=== PATIENT | male | born 1950 | race Asian ===

== ENCOUNTER 2017-07-09 06:59 | Day surgery (SDC) | payer OTHER ==
--- NOTE | 2017-07-08 18:30 | PREOPHP ---
DATE OF ADMISSION: 07/09/2017 HISTORY OF PRESENT ILLNESS: This 67-year-old patient is admitted for elective cataract surgery of the left eye. The patient has had blurring of vision in the left eye for a number of years and vision has recently decrease in the right eye as well. The patient has had diabetes mellitus since 1945. The patient also has a history of benign prostatic hypertrophy and hypertension. CURRENT MEDICATIONS: Includes hydralazine, Coreg, amlodipine, glipizide, and tamsulosin, (discontinued 1 week prior to surgery). ALLERGIES: ALLERGIC TO PENICILLIN. PHYSICAL EXAMINATION: HEENT: Visual acuity with best correction is 2100 in the right eye and hand motion to vision in the left eye. Slit lamp examination reveals nuclear sclerotic and posterior subcapsular cataract changes in both eyes, with the left eye being much more advanced. Applanation tonometry is 18 mmHg in both eyes. Examination of the retina is obscured by the cataracts in both eyes. DIAGNOSIS: Advanced near mature cataract, left eye. PLAN: Cataract extraction with lens implant, left eye. The risks and alternatives to the surgery have been discussed with the patient as well as inability to prognosticate visual outcome due to inability to visualize the retina in the left eye. The patient understands this and agrees to proceed with surgery in hopes of improving visual acuity leading to greater ability to perform activities of daily living. Dictated By: Walt Mills MD /[email or web address]/deepthi /Document#: [id number]
[~2017-07-09] VITALS: Ht 165.1 cm; Wt 62.0 kg
[2017-07-09] MEDS ORDERED: DICLOFENAC 0.1% 2.5 ML OPH OPER SCH (07:30)
[2017-07-09] MEDS ORDERED: CIPROFLOXACIN 0.3% 2.5 ML OPH OPER SCH (07:30)
[2017-07-09] MEDS ORDERED: CYCLOPENTOLATE/PHENYLEPH 2 ML OPH OPER SCH (07:30)
[2017-07-09] MEDS ORDERED: TROPICAMIDE 1% 3ML OPH OPER SCH (07:30)
[2017-07-09] MEDS ORDERED: CARV25TA97 PO (07:45)
[2017-07-09] MEDS ORDERED: GLIP-95 PO (07:46)
[2017-07-09] MEDS ORDERED: HYDR-3671 PO (07:46)
[2017-07-09] MEDS ORDERED: TAMS0.4C2 PO (07:47)
[2017-07-09] MEDS ORDERED: AMLO2.5T78 PO (07:47)
[2017-07-09] MEDS ORDERED: ASPI-664 PO (07:48)
[2017-07-09] MEDS ORDERED: PRAV10TA43 PO (07:48)
[2017-07-09] MEDS ORDERED: GLU5XL PO (07:50)
[2017-07-09] MEDS ORDERED: hydrALAzine 20 MG INJ IV ONE (09:00)
[2017-07-09 09:15] VITALS: BP 223/105; PULSE 73; RESP 18; Ht 165.1 cm; Wt 62.0 kg
[2017-07-09] MEDS ORDERED: CARBACHOL 0.01% 1.5 ML OPH INJ ONE (09:28)
[2017-07-09] MEDS ORDERED: LIDOCAINE 4% (MPF) 5 ML INJ ONE (09:28)
[2017-07-09] MEDS ORDERED: GENTAMICIN 80 MG INJ ONE (09:28)
[2017-07-09] MEDS ORDERED: EPINEPHrine 1 MG INJ ONE (09:29)
[2017-07-09] MEDS ORDERED: HYALURONATE/CHONDROITIN 1ML OPH INJ ONE (09:29)
[2017-07-09] MEDS ORDERED: DEXAMETHASONE 4 MG/ML 1 ML INJ ONE (09:29)
[2017-07-09] MEDS ORDERED: CEFAZOLIN 1 GM INJ INJ ONE (09:35)
[2017-07-09] MEDS ORDERED: HYALURONATE/CHONDROITIN 1ML OPH INJ IO ONE (09:35)
[2017-07-09] MEDS ORDERED: DEXAMETHASONE 4 MG/ML 1 ML INJ INJ ONE (09:35)
[2017-07-09] MEDS ORDERED: CARBACHOL 0.01% 1.5 ML OPH INJ IO ONE (09:35)
[2017-07-09] MEDS ORDERED: PROPOFOL 20 ML ONE (09:36)
[2017-07-09] MEDS ORDERED: LABETALOL HCL 20MG INJ ONE (09:45)
[2017-07-09] MEDS ORDERED: MEPERIDINE 25 MG INJ IV PRN (10:00)
[2017-07-09] MEDS ORDERED: LABETALOL HCL 20MG INJ IV PRN (10:00)
[2017-07-09] MEDS ORDERED: hydrALAzine 20 MG INJ IV PRN (10:00)
[2017-07-09] MEDS ORDERED: FENTAnyl 50 MCG/ML VIAL IV PRN (10:00)
[2017-07-09] MEDS ORDERED: ONDANSETRON 4 MG INJ IV PRN (10:00)
[2017-07-09 10:18] VITALS: BP 161/70; PULSE 74; RESP 18
[2017-07-09 10:22] VITALS: BP 147/69; PULSE 70; RESP 18
[2017-07-09] MEDS ORDERED: FENTAnyl 50 MCG/ML VIAL ONE (10:26)
[2017-07-09 10:27] VITALS: BP 111/57; PULSE 68; RESP 18
--- NOTE | 2017-07-09 10:28 | SIPON ---
Date/Time of Note Date/Time of Note DATE: 07/09/17 TIME: 10:26 Operative Report Preoperative Diagnosis mature cataract os Operation/Procedure Performed cataract surgery os Surgeon: VIRGINIE FRIED MD Anesthesia Type: MAC Estimated Blood Loss: none Transfusion Required: no Specimen: none Grafts/Implants posterior chamber lens implant Complications: no VIRGINIE FRIED MD Jul 09, 2017 10:27
[2017-07-09 10:32] VITALS: BP 110/59; PULSE 62; RESP 15
--- NOTE | 2017-07-09 10:46 | OPR ---
DATE OF OPERATION: 07/09/2017 PREOPERATIVE DIAGNOSIS: Mature cataract left eye. POSTOPERATIVE DIAGNOSIS: Mature cataract left eye. OPERATION PERFORMED: Cataract extraction with lens implant, left eye. SURGEON: Walt Mills MD ANESTHESIOLOGIST: Edinson Art MD ANESTHESIA: Local standby. PROCEDURE: The patient was brought to the operating room and placed on the table with an IV in place and the patient attached to an platform loader. Oxygen was given via face mask. After some intravenous sedation was administered, local anesthesia was given using Xylocaine 2% with epinephrine, mixed with Marcaine 0.5%. This was given in a lid block and retrobulbar injection. The patient was then prepped and draped in the usual sterile manner. A wire lid speculum was inserted between the lids of the left eye. A Superblade was used to enter the anterior chamber at the corneoscleral limbus at the 10:30 o'clock position. A separate incision was made using a 3.0-mm keratome which entered the corneoscleral junction at the 12 o'clock position. Through this 3- mm opening, an irrigating cystotome was introduced into the anterior chamber. The chamber was filled with Viscoat and an anterior capsulotomy was performed. Balanced salt solution was then used for hydrodissection of the lens. A phacoemulsification handpiece was then brought into the field and introduced into the anterior chamber. The lens nucleus was emulsified using a deep groove and cracking the nucleus into quadrants. Following this, each quadrant was aspirated and emulsified at the pupillary margin. Due to the fact that the patient had been on tamsulosin for a benign prostatic hypertrophy and despite the fact that it had been stopped 1 week prior to surgery, the patient had iris flaccidity and during the phacoemulsification period damage occurred to the iris sphincter inferiorly as well as to the iris stroma near the wound. Despite this the lens nucleus was fully emulsified. After this was completed, the irrigation/aspiration handpiece was brought to the field, introduced into the posterior chamber, and the lens cortical material was removed. When this was completed, additional Viscoat was injected into the anterior and posterior chambers. The 3-mm opening had its internal lips enlarged, and then the posterior chamber intraocular lens measuring 22.0 diopters ([employer] model LI61AO) was then injected into the posterior chamber using the lens injector system. After the leading haptic was introduced into the capsular bag and the lens optic was present in the center of the eye, the injector was removed and the trailing haptic was grasped with non-toothed forceps and introduced into the capsular fold superiorly. A Sinskey hook was then used to rotate the intraocular lens so that the lips were oriented in the horizontal meridian. One 10-0 nylon suture was placed across the wound. Prior to tying, the irrigation/aspiration handpiece was reintroduced into the anterior chamber to remove the Viscoat. Miochol was instilled to constrict the pupil, and then the 10-0 nylon suture was tied. The ends were cut short and then the knot was buried. Then, 0.5 mL of dexamethasone and 0.5 mL of gentamycin were injected into the sub-Tenon space in the inferior fornix. Ciloxan drops were then placed on the surface of the eye. The speculum was removed and a patch was applied. The patient then left the operating room in satisfactory condition. Dictated By: Walt Mills MD /joanna/kory /Document#: [id number] CHARLINE
[2017-07-09 11:00] VITALS: BP 148/65; PULSE 69; RESP 15
== END 2017-07-09 11:20 | disposition home or self-care (01) ==
LOC: SDS 06:59
PROVIDERS: ATTEND Ophthalmology
DX: H25.12 Age-related nuclear cataract, left eye (principal); I10 Essential (primary) hypertension; E11.9 Type 2 diabetes mellitus without complications; E78.5 Hyperlipidemia, unspecified
CPT/HCPCS: 66984; 82962; J0171; J0360; J0690; J1100; J1580; J3010; V2632; Z7512; Z7610